=== PATIENT | female | born 1985 | race African-American/Black ===

== ENCOUNTER 2016-08-24 11:22 | Emergency (ER) | payer BC ==
[~2016-08-24] VITALS: Ht 170.2 cm; Wt 125.0 kg
[~2016-08-24 11:22] MED LIST: ALPR0.2582 PO
[2016-08-24] MEDS ORDERED: MORPHINE SULFATE 4 MG/ML CPJ (NOT FOR IM USE) IV STA (11:47)
[2016-08-24] MEDS ORDERED: ONDANSETRON HCL 4MG/2ML VIAL IV STA (11:47)
[2016-08-24] MEDS ORDERED: SODIUM CHLORIDE 0.9% 1,000 ML IV ONE (11:47)
[2016-08-24 12:23] LABS: BASOPHILS % 1.3 % (0.0-2.0); DIFFERENTIAL COMMENT 0; EOSINOPHILS % 3.4 % (0.0-5.0); HEMATOCRIT. 34.5 % (36.0-48.0); HEMOGLOBIN. 11.5 g/dL (12.0-16.0); LYMPHOCYTES % 42.4 % (20.0-50.0); MEAN CORPUSCULAR HEMOGLOBIN 24.9 pg (28.0-32.0); MEAN CORPUSCULAR HGB CONC 33.2 g/dL (31.0-37.0); MEAN CORPUSCULAR VOLUME 74.9 fL (81.0-99.0); MEAN PLATELET VOLUME 8.4 fl (7.4-10.4); MONOCYTES % 9.4 % (2.0-8.0); NEUTROPHILS % 43.5 % (40.0-76.0); PLATELET 277 x1000/uL (130-400); RED BLOOD CELL COUNT 4.61 mill/uL (4.2-5.4); RED CELL DISTRIBUTION WIDTH 15.4 % (11.6-14.6); WHITE BLOOD COUNT 4.5 x1000/uL (4.5-11.0)
[2016-08-24 12:27] LABS: CLARITY URINE TURBID (CLEAR); COLOR URINE YELLOW (YELLOW); GLUCOSE URINE NEGATIVE (NEGATIVE); KETONES URINE NEGATIVE (NEGATIVE); LEUKOCYTE ESTERASE URINE 2+ (NEGATIVE); NITRITE URINE NEGATIVE (NEGATIVE); OCCULT BLOOD URINE NEGATIVE (NEGATIVE); PH URINE 6.5 (4.5-8.0); PROTEIN URINE NEGATIVE (NEGATIVE); SPECIFIC GRAVITY URINE 1.015 (1.005-1.030)
[2016-08-24 12:29] LABS: INR 1.1; PROTHROMBIN TIME 11.7 sec
[2016-08-24 12:35] LABS: ALANINE AMINOTRANSFERASE 11 IU/L (13-61); ALBUMIN 3.5 g/dL (3.4-5.0); ANION GAP 12; CALCIUM 8.6 mg/dL (8.5-10.1); CARBON DIOXIDE 25 mEq/L (21-32); CHLORIDE 105 mEq/L (98-107); INDEX HEMOLYSI 1 (1-3); INDEX ICTERIC 1 (1-4); INDEX LIPEMIC 1 (1-3); LIPASE 68 IU/L (73-393); UREA NITROGEN BLOOD 10 mg/dL (7-21); eGFR > 60 mL/min (>60)
[2016-08-24 12:45] LABS: BACTERIA URINE 1+; WBC URINE 15-25 /hpf (0-2)
[2016-08-24 12:46] LABS: SQUAMOUS EPITHELIAL CELL URINE 3+ /lpf (RARE/1+)
[2016-08-24 12:48] LABS: RBC URINE 0-2 /hpf (0-2)
[2016-08-24 15:00] VITALS: BP 122/77
[2016-08-25 10:12] LABS: *AMPHETAMINES SCREEN URINE NEGATIVE (NEGATIVE); *BARBITURATES SCREEN URINE NEGATIVE (NEGATIVE); *BENZODIAZEPINES SCREEN URINE NEGATIVE (NEGATIVE); *COCAINE SCREEN URINE NEGATIVE (NEGATIVE); CANNABINOID URINE SCREEN NEGATIVE (NEGATIVE); ECSTASY MDMA SCREEN URINE NEGATIVE (NEGATIVE); METHADONE URINE SCREEN NEGATIVE (NEGATIVE); PHENCYCLIDINE URINE SCREEN NEGATIVE (NEGATIVE)
[2016-08-25 10:21] LABS: OPIATES URINE SCREEN PRESUMTIVE POSITIVE (NEGATIVE)
== END 2016-08-24 15:00 | disposition home or self-care (01) ==
LOC: ER 11:27
DX: N39.0 Urinary tract infection, site not specified (principal); D57.1 Sickle-cell disease without crisis; Z88.6 Allergy status to analgesic agent; Z79.899 Other long term (current) drug therapy
CPT/HCPCS: 36415; 80053; 80305; 81001; 81025; 83690; 85025; 85044; 85610; 96374; 96375; 99284; J2270; J2405; J7030; Z7610

== ENCOUNTER 2016-12-21 18:11 | Emergency (ER) | payer BC ==
[~2016-12-21] VITALS: Ht 170.2 cm; Wt 76.0 kg
[2016-12-21 18:14] VITALS: BP 149/96
== END 2016-12-21 22:54 | disposition left against medical advice (07) ==
LOC: ER 18:11
DX: R10.9 Unspecified abdominal pain (principal); Z53.21 Procedure and treatment not carried out due to patient leaving prior to being seen by health care provider

== ENCOUNTER 2017-08-09 09:43 | Emergency (ER) | payer BC ==
[~2017-08-09] VITALS: Ht 170.2 cm; Wt 78.0 kg
[~2017-08-09 09:43] MED LIST changes: +ALPR0.25 PO; -ALPR0.2582 PO
[2017-08-09 10:57] LABS: BASOPHILS % 1.1 % (0.0-2.0); EOSINOPHILS % 4.8 % (0.0-5.0); HEMATOCRIT. 35.2 % (36.0-48.0); HEMOGLOBIN. 11.6 g/dL (12.0-16.0); LYMPHOCYTES % 34.9 % (20.0-50.0); MEAN CORPUSCULAR HEMOGLOBIN 24.8 pg (28.0-32.0); MEAN CORPUSCULAR VOLUME 75.1 fL (81.0-99.0); MEAN PLATELET VOLUME 8.7 fl (7.4-10.4); MONOCYTES % 9.5 % (2.0-8.0); NEUTROPHILS % 49.7 % (40.0-76.0); PLATELET 304 x1000/uL (130-400); RED BLOOD CELL COUNT 4.69 mill/uL (4.2-5.4); RED CELL DISTRIBUTION WIDTH 15.4 % (11.6-14.6)
[2017-08-09 11:00] LABS: CHLORIDE 108 mEq/L (98-107)
[2017-08-09] MEDS ORDERED: SODIUM CHLORIDE 0.9% 1,000 ML IV ONE ×2 (11:00→13:32)
[2017-08-09] MEDS ORDERED: ACETAMINOPHEN 325MG TABLET PO STA (11:00)
[2017-08-09] MEDS ORDERED: ACETAMINOPHEN WITH CODEINE 300/30MG TABLET PO ONE (12:45)
[2017-08-09 14:32] LABS: CLARITY URINE TURBID (CLEAR); COLOR URINE YELLOW (YELLOW); KETONES URINE NEGATIVE (NEGATIVE); LEUKOCYTE ESTERASE URINE TRACE (NEGATIVE); NITRITE URINE NEGATIVE (NEGATIVE); OCCULT BLOOD URINE 3+ (NEGATIVE); PROTEIN URINE NEGATIVE (NEGATIVE); SPECIFIC GRAVITY URINE 1.013 (1.005-1.030)
[2017-08-09 14:58] VITALS: BP 104/61
== END 2017-08-09 15:08 | disposition home or self-care (01) ==
LOC: ER 10:25
DX: B34.9 Viral infection, unspecified (principal); R00.0 Tachycardia, unspecified; Z88.6 Allergy status to analgesic agent
CPT/HCPCS: 36415; 71045; 80053; 81003; 85025; 93005; 96360; 96361; 99285; J7030; Z7610

== ENCOUNTER 2017-12-11 23:51 | Emergency (ER) | payer BC ==
[~2017-12-11] VITALS: Ht 172.7 cm; Wt 73.0 kg
[2017-12-12 01:14] LABS: BASOPHILS % 0.6 % (0.0-2.0); EOSINOPHILS % 0.2 % (0.0-5.0); HEMATOCRIT. 34.5 % (36.0-48.0); HEMOGLOBIN. 11.4 g/dL (12.0-16.0); LYMPHOCYTES % 14.8 % (20.0-50.0); MEAN CORPUSCULAR HEMOGLOBIN 24.6 pg (28.0-32.0); MEAN CORPUSCULAR VOLUME 74.6 fL (81.0-99.0); MEAN PLATELET VOLUME 9.2 fl (7.4-10.4); MONOCYTES % 8.2 % (2.0-8.0); NEUTROPHILS % 76.2 % (40.0-76.0); PLATELET 295 x1000/uL (130-400); RED BLOOD CELL COUNT 4.63 mill/uL (4.2-5.4); RED CELL DISTRIBUTION WIDTH 15.8 % (11.6-14.6)
[2017-12-12 01:16] LABS: CHLORIDE 110 mEq/L (98-107)
[2017-12-12 01:20] LABS: ETHANOL BLOOD 222 mg/dL; HCG SCREEN NEGATIVE
[2017-12-12 03:43] VITALS: BP 131/85
== END 2017-12-12 03:56 | disposition home or self-care (01) ==
LOC: ER 23:51
DX: F10.129 Alcohol abuse with intoxication, unspecified (principal); F41.9 Anxiety disorder, unspecified; D57.1 Sickle-cell disease without crisis; Y90.7 Blood alcohol level of 200-239 mg/100 ml; Z88.6 Allergy status to analgesic agent; Z79.899 Other long term (current) drug therapy
CPT/HCPCS: 36415; 80053; 81025; 82962; 84703; 85025; 99284; G0482

== ENCOUNTER 2022-09-04 19:09 | Emergency (ER) | payer BC ==
[~2022-09-04] VITALS: Ht 170.2 cm; Wt 89.0 kg
[2022-09-04 19:35] VITALS: BP 136/82
[2022-09-04 20:45] LABS: BASOPHILS % 0.6 % (0.0-2.0); EOSINOPHILS % 1.5 % (0.0-5.0); HEMATOCRIT. 34.2 % (36.0-48.0); HEMOGLOBIN. 10.9 g/dL (12.0-16.0); LYMPHOCYTES % 35.2 % (20.0-50.0); MEAN CORPUSCULAR HEMOGLOBIN 23.9 pg (28.0-32.0); MEAN CORPUSCULAR VOLUME 74.8 fL (81.0-99.0); MEAN PLATELET VOLUME 9.2 fl (7.4-10.4); MONOCYTES % 7.2 % (2.0-8.0); NEUTROPHILS % 55.5 % (40.0-76.0); PLATELET 315 x1000/uL (130-400); RED BLOOD CELL COUNT 4.57 mill/uL (4.2-5.4); RED CELL DISTRIBUTION WIDTH 16.4 % (11.6-14.6)
[2022-09-04 20:53] LABS: CHLORIDE 105 mEq/L (98-107)
[2022-09-04 21:05] LABS: HCG SCREEN NEGATIVE
[2022-09-04 21:12] LABS: CLARITY URINE TURBID (CLEAR); COLOR URINE YELLOW (YELLOW); KETONES URINE NEGATIVE (NEGATIVE); LEUKOCYTE ESTERASE URINE 1+ (NEGATIVE); NITRITE URINE NEGATIVE (NEGATIVE); OCCULT BLOOD URINE NEGATIVE (NEGATIVE); PH URINE 6.5 (4.5-8.0); PROTEIN URINE NEGATIVE (NEGATIVE); SPECIFIC GRAVITY URINE 1.015 (1.005-1.030)
[2022-09-04] MEDS ORDERED: CEPH500C2 MT (21:59)
== END 2022-09-04 22:10 | disposition home or self-care (01) ==
LOC: ER 19:09
DX: R07.89 Other chest pain (principal); R51.9 Headache, unspecified; N39.0 Urinary tract infection, site not specified; D64.9 Anemia, unspecified; E11.9 Type 2 diabetes mellitus without complications
CPT/HCPCS: 36415; 71045; 80053; 81003; 81025; 84484; 84703; 85025; 85660; 93005; 99285

== ENCOUNTER 2023-05-10 08:08 | Emergency (ER) | payer OTHER ==
[~2023-05-10] VITALS: Ht 170.2 cm; Wt 91.0 kg
[~2023-05-10 08:08] MED LIST changes: +CEPH500C2 MT
[2023-05-10 08:12] VITALS: O2SAT 99
[2023-05-10 09:11] LABS: INR 1.1; PROTHROMBIN TIME 11.9 sec (9.6-11.0)
[2023-05-10 09:12] LABS: BASOPHILS % 0.7 % (0.0-2.0); DIFFERENTIAL COMMENT 0; EOSINOPHILS % 1.3 % (0.0-5.0); HEMATOCRIT. 33.4 % (36.0-48.0); HEMOGLOBIN. 10.4 g/dL (12.0-16.0); LYMPHOCYTES % 10.7 % (20.0-50.0); MEAN CORPUSCULAR HEMOGLOBIN 23.1 pg (28.0-32.0); MEAN CORPUSCULAR HGB CONC 31.3 g/dL (31.0-37.0); MEAN CORPUSCULAR VOLUME 73.9 fL (81.0-99.0); MEAN PLATELET VOLUME 8.7 fl (7.4-10.4); NEUTROPHILS % 79.3 % (40.0-76.0); PLATELET 349 x1000/uL (130-400); RED BLOOD CELL COUNT 4.51 mill/uL (4.2-5.4); WHITE BLOOD COUNT 6.4 x1000/uL (4.5-11.0)
[2023-05-10 09:14] LABS: ALANINE AMINOTRANSFERASE 9 IU/L (10-49); ALBUMIN 4.3 g/dL (3.2-4.8); ASPARTATE AMINOTRANSFERASE 16 IU/L (<34); BILIRUBIN TOTAL 0.2 mg/dL (0.1-1.0); CALCIUM 8.9 mg/dL (8.7-10.4); CARBON DIOXIDE 25 mEq/L (21-32); CHLORIDE 103 mEq/L (98-107); GLUCOSE 94 mg/dL (70-105); POTASSIUM 3.7 mEq/L (3.5-5.1); PROTEIN TOTAL 8.4 g/dL (6.0-8.3); SODIUM 137 mEq/L (136-145); UREA NITROGEN BLOOD 8 mg/dL (9-23)
[2023-05-10] MEDS ORDERED: ACETAMINOPHEN WITH CODEINE 300/30MG TABLET PO ONE (09:15)
[2023-05-10] MEDS ORDERED: AMOXICILLIN/POTASSIUM CLAVULANATE 875/125MG TAB PO ONE (09:15)
[2023-05-10 09:37] LABS: TROPONIN I HIGH SENSITIVITY < 4 ng/L (3.0-34)
[2023-05-10 11:08] VITALS: BP 112/71; PULSE 127; RESP 16; TEMP 100.7
[2023-05-10] MEDS ORDERED: ACET-2708 MT ×3 (11:37→11:40)
[2023-05-10] MEDS ORDERED: D-ME473S50 PO ×3 (11:37→11:40)
[2023-05-10] MEDS ORDERED: AMOX1TAB16 MT ×3 (11:37→11:40)
== END 2023-05-10 11:51 | disposition home or self-care (01) ==
LOC: ER 08:08
DX: J32.9 Chronic sinusitis, unspecified (principal); D64.9 Anemia, unspecified; E11.9 Type 2 diabetes mellitus without complications; Z79.899 Other long term (current) drug therapy
CPT/HCPCS: 36415; 71045; 80053; 84484; 85025; 93005; 99285

== ENCOUNTER 2023-10-13 08:07 | Inpatient (IN) | payer OTHER ==
[~2023-10-13] VITALS: Ht 170.2 cm; Wt 84.4 kg
[~2023-10-13 08:07] MED LIST changes: +ACET-2708 MT; +AMOX1TAB16 MT; +D-ME473S50 PO
[2023-10-13] MEDS ORDERED: KEPPRA (08:11)
[2023-10-13 08:51] LABS: DIFFERENTIAL COMMENT 0; HEMATOCRIT. 32.7 % (36.0-48.0); HEMOGLOBIN. 10.6 g/dL (12.0-16.0); MEAN CORPUSCULAR HEMOGLOBIN 23.4 pg (28.0-32.0); MEAN CORPUSCULAR HGB CONC 32.4 g/dL (31.0-37.0); MEAN CORPUSCULAR VOLUME 72.3 fL (81.0-99.0); MEAN PLATELET VOLUME 9.2 fl (7.4-10.4); PLATELET 341 x1000/uL (130-400); RED BLOOD CELL COUNT 4.53 mill/uL (4.2-5.4); RED CELL DISTRIBUTION WIDTH 17.3 % (11.6-14.6); WHITE BLOOD COUNT 6.5 x1000/uL (4.5-11.0)
[2023-10-13] MEDS: MORPHINE SULFATE 4 MG/ML INJ (FOR IV/IM USE) IV STA (08:57)
[2023-10-13 09:36] LABS: CHLORIDE 105 mEq/L (98-107); POTASSIUM 3.8 mEq/L (3.5-5.1); SODIUM 138 mEq/L (136-145)
[2023-10-13 09:37] LABS: CALCIUM 9.4 mg/dL (8.7-10.4); CARBON DIOXIDE 26 mEq/L (21-32)
[2023-10-13 09:42] LABS: CREATININE 0.9 mg/dL (0.6-1.0); GLUCOSE 99 mg/dL (70-105); UREA NITROGEN BLOOD 13 mg/dL (9-23)
[2023-10-13 09:55] LABS: TROPONIN I HIGH SENSITIVITY < 4 ng/L (3.0-34)
[2023-10-13 10:45] LABS: SICKLE CELL SCREEN POSITIVE (NEGATIVE)
[2023-10-13 11:13] LABS: TROPONIN I HIGH SENSITIVITY < 4 ng/L (3.0-34)
[2023-10-13] MEDS ORDERED: CLONIDINE 0.1MG TABLET PO PRN (12:15)
[2023-10-13] MEDS ORDERED: DOCUSATE SODIUM 100MG CAPSULE PO PRN (12:15)
[2023-10-13] MEDS ORDERED: MAGNESIUM/ALUMINUM HYDROXIDE/SIMETHICONE 30ML UDC PO PRN (12:15)
[2023-10-13] MEDS ORDERED: IPRATROPIUM/ALBUTEROL 0.5-3(2.5)MG/3ML NEB HHN PRN (12:15)
[2023-10-13] MEDS ORDERED: NA PHOS,M-B/NA PHOS,DI-BA ENEMA 118ML PR PRN (12:15)
[2023-10-13] MEDS ORDERED: ACETAMINOPHEN 325MG TABLET PO PRN ×2 (12:15)
[2023-10-13] MEDS ORDERED: GUAIFENESIN 200MG/10ML SUGAR FREE UDC PO PRN (12:15)
[2023-10-13] MEDS ORDERED: NALOXONE HCL 0.4MG/ML VIAL IV PRN (12:30)
[2023-10-13] MEDS: SODIUM CHLORIDE 0.9% 1,000 ML IV SCH (12:36)
[2023-10-13] MEDS: ENOXAPARIN 40MG/0.4ML SYR SUBCUT SCH (12:37)
[2023-10-13 13:41] LABS: ANISOCYTOSIS 1+; MICROCYTOSIS 2+; PLATELET ESTIMATE NORMAL
[2023-10-13 15:46] LABS: IRON 60 ug/dL (50-170)
[2023-10-13 15:48] LABS: CREATINE KINASE 79 IU/L (34-145); LACTATE DEHYDROGENASE 138 IU/L (120-246)
[2023-10-13 15:49] LABS: TOTAL IRON BINDING CAPACITY 343 ug/dl (250-425)
[2023-10-13 15:52] LABS: FERRITIN 23 ng/mL (10-291)
[2023-10-13 15:53] LABS: VITAMIN B12 SERUM 460 pg/mL (211-911)
[2023-10-13] MEDS: HYDROCODONE/ACETAMINOPHEN 5/325MG TABLET PO PRN (17:24)
[2023-10-13 17:36] VITALS: BP 112/71; PULSE 75; RESP 18; TEMP 98.8
[2023-10-13 17:54] VITALS: BP 112/71; PULSE 75; RESP 18; TEMP 98.8
[2023-10-13] MEDS ORDERED: NITROGLYCERIN 0.4MG TABLET SL SL PRN (18:45)
[2023-10-13 20:15] VITALS: BP 111/74; PULSE 99; RESP 15; TEMP 97.6
[2023-10-13] MEDS: LEVETIRACETAM 500MG/5ML CUP PO SCH (22:35)
[2023-10-13] MEDS: MELATONIN 3MG TABLET PO NR (22:37)
[2023-10-14 00:15] VITALS: BP 103/66; PULSE 75; RESP 16; TEMP 97.7
[2023-10-14 01:20] LABS: CREATINE KINASE 66 IU/L (34-145)
[2023-10-14 04:15] VITALS: BP 86/55; PULSE 76; RESP 13; TEMP 97.1
[2023-10-14 05:55] LABS: CHLORIDE 108 mEq/L (98-107); POTASSIUM 3.7 mEq/L (3.5-5.1); SODIUM 138 mEq/L (136-145)
[2023-10-14 05:56] LABS: CALCIUM 8.3 mg/dL (8.7-10.4); CARBON DIOXIDE 23 mEq/L (21-32)
[2023-10-14 06:01] LABS: CREATININE 0.8 mg/dL (0.6-1.0); GLUCOSE 98 mg/dL (70-105); UREA NITROGEN BLOOD 11 mg/dL (9-23)
[2023-10-14 06:05] LABS: T4 FREE 0.94 ng/dL (0.89-1.76)
[2023-10-14 06:16] LABS: BASOPHILS % 1.1 % (0.0-2.0); DIFFERENTIAL COMMENT 0; EOSINOPHILS % 2.5 % (0.0-5.0); LYMPHOCYTES % 44.1 % (20.0-50.0); MEAN CORPUSCULAR HEMOGLOBIN 23.6 pg (28.0-32.0); MEAN CORPUSCULAR HGB CONC 32.1 g/dL (31.0-37.0); MEAN CORPUSCULAR VOLUME 73.5 fL (81.0-99.0); MEAN PLATELET VOLUME 9.2 fl (7.4-10.4); MONOCYTES % 8.2 % (2.0-8.0); NEUTROPHILS % 44.1 % (40.0-76.0); PLATELET 313 x1000/uL (130-400); RED BLOOD CELL COUNT 3.81 mill/uL (4.2-5.4); RED CELL DISTRIBUTION WIDTH 17.2 % (11.6-14.6); WHITE BLOOD COUNT 6.7 x1000/uL (4.5-11.0)
[2023-10-14 08:00] VITALS: BP 103/71; PULSE 78; RESP 18; TEMP 98
[2023-10-14 09:33] LABS: BG BASE EXCESS 0.2 mmol/L (-2.0-2.0); BG CARBOXYHEMOGLOBIN 0.3 % (0.5-1.5); BG DEOXYHEMOGLOBIN 2.6 % (0.0-5.0); BG FRACTION INSPIRED OXYGEN 21; BG HCO3 ACT 24.6 mmol/L (22.0-26.0); BG METHEMOGLOBIN 0.3 % (0.0-1.5); BG OXYGEN SATURATION 97.4 % (92.0-98.5); BG OXYHEMOGLOBIN 96.8 % (94.0-97.0); BG PCO2 39.2 mmHg (35.0-45.0); BG PH 7.416 (7.350-7.450); BG PO2 99.7 mmHg (75.0-100.0); BG SAMPLE SITE LEFT RADIAL; BG TOTAL HEMOGLOBIN 11.3 g/dL (12.0-18.0); BG VENT MODE ROOM AIR
[2023-10-14 11:44] LABS: HEMATOCRIT 30.6 % (36.0-48.0)
[2023-10-14 11:50] LABS: CLARITY URINE CLOUDY (CLEAR); COLOR URINE ORANGE (YELLOW); GLUCOSE URINE NEGATIVE (NEGATIVE); KETONES URINE NEGATIVE (NEGATIVE); LEUKOCYTE ESTERASE URINE NEGATIVE (NEGATIVE); NITRITE URINE NEGATIVE (NEGATIVE); OCCULT BLOOD URINE NEGATIVE (NEGATIVE); PH URINE 6.5 (4.5-8.0); PROTEIN URINE NEGATIVE (NEGATIVE); UCG QC LOT# 798852; UCG SCREEN NEGATIVE
[2023-10-14 12:00] VITALS: BP 99/70; PULSE 72; RESP 18; TEMP 97.9
[2023-10-14 12:02] LABS: *AMPHETAMINES SCREEN URINE NEGATIVE (NEGATIVE)
[2023-10-14 12:03] LABS: *BARBITURATES SCREEN URINE NEGATIVE (NEGATIVE); *BENZODIAZEPINES SCREEN URINE NEGATIVE (NEGATIVE); *COCAINE SCREEN URINE NEGATIVE (NEGATIVE); CANNABINOID URINE SCREEN NEGATIVE (NEGATIVE); ECSTASY MDMA SCREEN URINE NEGATIVE (NEGATIVE); METHADONE URINE SCREEN NEGATIVE (NEGATIVE); OPIATES URINE SCREEN PRESUMPTIVE POSITIVE (NEGATIVE); PHENCYCLIDINE URINE SCREEN NEGATIVE (NEGATIVE)
[2023-10-14 12:17] LABS: BACTERIA URINE FEW; RBC URINE 0-2 /hpf (0-2); SQUAMOUS EPITHELIAL CELL URINE 1+ /lpf (RARE/1+); WBC URINE 0-2 /hpf (0-2); YEAST URINE NONE SEEN
[2023-10-14 16:00] VITALS: BP 101/67; PULSE 77; RESP 18; TEMP 98
[2023-10-14] MEDS: ONDANSETRON HCL 4MG/2ML INJ IV PRN (17:00)
[2023-10-14] MEDS: SUMATRIPTAN SUCCINATE 25MG TABLET PO PRN (17:08)
[2023-10-14 20:05] VITALS: BP 111/79; PULSE 77; RESP 19; TEMP 97.5
[2023-10-14] MEDS: ATORVASTATIN CALCIUM 20MG TABLET PO SCH (21:59)
[2023-10-15 00:05] VITALS: BP 94/65; PULSE 74; RESP 18; TEMP 97.3
[2023-10-15 04:00] VITALS: BP_SYST 112; BP_SYST 161; BP_DIAS 42; BP_DIAS 72; PULSE 65; PULSE 76; RESP 16; RESP 18; TEMP 97.1; TEMP 97.2
[2023-10-15 07:26] LABS: HEMATOCRIT 30.3 % (36.0-48.0); HEMOGLOBIN 9.7 g/dL (12.0-16.0); MEAN CORPUSCULAR HEMOGLOBIN 23.2 pg (28.0-32.0); MEAN CORPUSCULAR HGB CONC 31.9 g/dL (31.0-37.0); MEAN CORPUSCULAR VOLUME 72.6 fL (81.0-99.0); PLATELET 296 x1000/uL (130-400); RED BLOOD CELL COUNT 4.17 mill/uL (4.2-5.4); RED CELL DISTRIBUTION WIDTH 17.4 % (11.6-14.6); WHITE BLOOD COUNT 6.3 x1000/uL (4.5-11.0)
[2023-10-15 07:28] LABS: CALCIUM 8.6 mg/dL (8.7-10.4); CHLORIDE 108 mEq/L (98-107); SODIUM 137 mEq/L (136-145)
[2023-10-15 07:29] LABS: CARBON DIOXIDE 25 mEq/L (21-32)
[2023-10-15 07:34] LABS: CREATININE 0.8 mg/dL (0.6-1.0); GLUCOSE 92 mg/dL (70-105); UREA NITROGEN BLOOD 12 mg/dL (9-23)
[2023-10-15 07:36] LABS: PHOSPHORUS 3.5 mg/dL (2.5-4.9)
[2023-10-15 08:00] VITALS: BP 96/52; PULSE 85; RESP 18; TEMP 98.1
[2023-10-15] MEDS ORDERED: REGADENOSON 0.4 MG/5 ML IV ONE ×2 (11:00→13:59)
[2023-10-15] MEDS: MAGNESIUM 4 G PREMIX 100 ML IV SCH (11:55)
[2023-10-15 12:00] VITALS: BP 107/54; PULSE 81; RESP 17; TEMP 98
[2023-10-15] MEDS ORDERED: HYDRALAZINE 20MG/ML VIAL IV NR (14:45)
[2023-10-15 16:00] VITALS: BP 105/55; PULSE 100; RESP 20; TEMP 98.4
[2023-10-15] MEDS: KETOROLAC 30MG/ML VIAL IV NR (17:16)
[2023-10-15] MEDS: METOCLOPRAMIDE HCL 10MG/2ML VIAL IV NR (17:16)
[2023-10-15 20:00] VITALS: BP 103/59; PULSE 89; RESP 18; TEMP 98
[2023-10-16] VITALS: BP 90/46; PULSE 75; RESP 17; TEMP 98.2
[2023-10-16 04:00] VITALS: BP 93/56; PULSE 79; RESP 19; TEMP 97.8
[2023-10-16 06:08] LABS: HEMATOCRIT 28.3 % (36.0-48.0); MEAN CORPUSCULAR HEMOGLOBIN 23.4 pg (28.0-32.0); MEAN CORPUSCULAR HGB CONC 31.8 g/dL (31.0-37.0); MEAN CORPUSCULAR VOLUME 73.4 fL (81.0-99.0); PLATELET 288 x1000/uL (130-400); RED BLOOD CELL COUNT 3.86 mill/uL (4.2-5.4); WHITE BLOOD COUNT 6.6 x1000/uL (4.5-11.0)
[2023-10-16 06:19] LABS: CALCIUM 6.7 mg/dL (8.7-10.4); CARBON DIOXIDE 20 mEq/L (21-32); CHLORIDE 116 mEq/L (98-107); POTASSIUM 3.3 mEq/L (3.5-5.1); SODIUM 142 mEq/L (136-145)
[2023-10-16 06:23] LABS: CREATININE 0.7 mg/dL (0.6-1.0)
[2023-10-16 06:25] LABS: GLUCOSE 76 mg/dL (70-105); UREA NITROGEN BLOOD 10 mg/dL (9-23)
[2023-10-16 06:27] LABS: PHOSPHORUS 2.7 mg/dL (2.5-4.9)
[2023-10-16] MEDS: POTASSIUM CHLORIDE 20MEQ TABLET SR PO SCH (07:07)
[2023-10-16 08:00] VITALS: BP 92/59; PULSE 90; RESP 20; TEMP 98
[2023-10-16] MEDS ORDERED: ATOR20TA PO (11:52)
[2023-10-16] MEDS ORDERED: NITR0.4T49 SL (11:52)
[2023-10-16] MEDS ORDERED: KEPPSOL PO (11:52)
[2023-10-16] MEDS ORDERED: IMIT25 PO (11:52)
[2023-10-16] MEDS ORDERED: ASPI-1497 PO (11:57)
[2023-10-16 12:00] VITALS: BP 96/54; PULSE 86; RESP 20; TEMP 98.2
[2023-10-16 13:00] VITALS: BP 96/54; PULSE 86; TEMP 98.2; O2SAT 99
== END 2023-10-16 14:00 | disposition home or self-care (01) | DRG 203 ==
LOC: ER 08:07 → 5WST 10:11 → EDBEDREQ 10:14 → EDBEDREQTM 10:14 → 3WST 17:19
PROVIDERS: ADMIT Preventive Medicine Clinical Informatics; ATTEND Preventive Medicine Clinical Informatics
DX: R07.89 Other chest pain (principal); D56.0 Alpha thalassemia; D57.1 Sickle-cell disease without crisis; F41.1 Generalized anxiety disorder; F41.0 Panic disorder [episodic paroxysmal anxiety]; I10 Essential (primary) hypertension; E11.9 Type 2 diabetes mellitus without complications; G43.909 Migraine, unspecified, not intractable, without status migrainosus; Z90.49 Acquired absence of other specified parts of digestive tract; Z88.6 Allergy status to analgesic agent; Z88.1 Allergy status to other antibiotic agents
CPT/HCPCS: 36415; 36600; 71045; 78452; 80048; 80061; 80305; 81003; 81025; 82375; 82550; 82607; 82728; 82746; 82805; 83036; 83540; 83550; 83605; 83615; 83735; 83880; 84100; 84439; 84443; 84484; 85014; 85018; 85025; 85027; 85044; 85379; 85651; 85660; 93005; 93306; 99285; A9500; J0360; J1650; J1885; J2270; J2405; J2765; J2785; J3475; J7030

== ENCOUNTER 2024-02-01 20:21 | Emergency (ER) | payer OTHER ==
[~2024-02-01] VITALS: Ht 170.2 cm; Wt 82.0 kg
[~2024-02-01 20:21] MED LIST changes: -AMOX1TAB16 MT; +ASPI-1497 PO; +ATOR20TA PO; -CEPH500C2 MT; -D-ME473S50 PO; +IMIT25 PO; +KEPPSOL PO; +NITR0.4T49 SL
[2024-02-01 20:24] VITALS: O2SAT 100
[2024-02-01 20:25] VITALS: BP 125/87; PULSE 86; RESP 18; TEMP 98; O2SAT 98
[2024-02-01 21:07] LABS: DIFFERENTIAL COMMENT 0; EOSINOPHILS % 2.1 % (0.0-5.0); HEMATOCRIT. 31.8 % (36.0-48.0); HEMOGLOBIN. 10.4 g/dL (12.0-16.0); LYMPHOCYTES % 31.2 % (20.0-50.0); MEAN CORPUSCULAR HEMOGLOBIN 23.5 pg (28.0-32.0); MEAN CORPUSCULAR HGB CONC 32.6 g/dL (31.0-37.0); MEAN PLATELET VOLUME 8.4 fl (7.4-10.4); MONOCYTES % 6.6 % (2.0-8.0); NEUTROPHILS % 59.1 % (40.0-76.0); PLATELET 364 x1000/uL (130-400); RED BLOOD CELL COUNT 4.42 mill/uL (4.2-5.4); RED CELL DISTRIBUTION WIDTH 18.8 % (11.6-14.6); WHITE BLOOD COUNT 7.2 x1000/uL (4.5-11.0)
[2024-02-01 21:14] LABS: CHLORIDE 105 mEq/L (98-107); POTASSIUM 3.9 mEq/L (3.5-5.1); SODIUM 137 mEq/L (136-145)
[2024-02-01 21:15] LABS: CARBON DIOXIDE 27 mEq/L (21-32)
[2024-02-01 21:16] LABS: CALCIUM 9.3 mg/dL (8.7-10.4)
[2024-02-01 21:20] LABS: CREATININE 0.9 mg/dL (0.6-1.0); GLUCOSE 95 mg/dL (70-105); UREA NITROGEN BLOOD 14 mg/dL (9-23)
[2024-02-01 21:23] LABS: TROPONIN I HIGH SENSITIVITY < 4 ng/L (3.0-34)
[2024-02-01] MEDS ORDERED: DICLOFENAC SODIUM 75MG DR TABLET PO ONE (22:30)
[2024-02-01] MEDS ORDERED: ACETAMINOPHEN 325MG TABLET PO ONE (22:30)
== END 2024-02-02 01:01 | disposition left against medical advice (07) ==
LOC: ER 20:21
DX: R07.89 Other chest pain (principal); D64.9 Anemia, unspecified; G43.909 Migraine, unspecified, not intractable, without status migrainosus; E11.9 Type 2 diabetes mellitus without complications; Z98.890 Other specified postprocedural states; Z90.49 Acquired absence of other specified parts of digestive tract; Z88.6 Allergy status to analgesic agent; Z88.1 Allergy status to other antibiotic agents; Z79.899 Other long term (current) drug therapy; Z79.82 Long term (current) use of aspirin
CPT/HCPCS: 36415; 71045; 80048; 84484; 85025; 93005; 99285

== ENCOUNTER 2024-09-09 20:18 | Emergency (ER) | payer OTHER ==
[~2024-09-09] VITALS: Ht 170.2 cm; Wt 92.0 kg
[2024-09-09 20:23] VITALS: O2SAT 100
[2024-09-09 20:27] VITALS: BP 122/75; PULSE 82; RESP 18; TEMP 36.5; O2SAT 99
[2024-09-09] MEDS ORDERED: ACET-2708 MT (21:20)
== END 2024-09-09 22:28 | disposition home or self-care (01) ==
LOC: ER 20:18
DX: S52.56 Barton's fracture (principal); D64.9 Anemia, unspecified; J45.909 Unspecified asthma, uncomplicated; G43.909 Migraine, unspecified, not intractable, without status migrainosus; Z90.49 Acquired absence of other specified parts of digestive tract; Z79.899 Other long term (current) drug therapy; Z88.1 Allergy status to other antibiotic agents; Z88.6 Allergy status to analgesic agent; W22.01XA Walked into wall, initial encounter; Y93.89 Activity, other specified; Y92.89 Other specified places as the place of occurrence of the external cause; Y99.8 Other external cause status
CPT/HCPCS: 99284; 73090; 73110; 73130; 29125; A6449

== ENCOUNTER 2024-12-19 09:12 | Emergency (ER) | payer OTHER ==
[~2024-12-19] VITALS: Ht 167.6 cm; Wt 85.0 kg
[2024-12-19 09:16] VITALS: O2SAT 100
[2024-12-19 09:32] LABS: BASOPHILS % 1.4 % (0.0-2.0); EOSINOPHILS % 5.9 % (0.0-5.0); HEMATOCRIT. 32.9 % (36.0-48.0); HEMOGLOBIN. 10.5 g/dL (12.0-16.0); LYMPHOCYTES % 36.8 % (20.0-50.0); MEAN PLATELET VOLUME 8.9 fl (7.4-10.4); MONOCYTES % 9.4 % (2.0-8.0); NEUTROPHILS % 46.5 % (40.0-76.0); PLATELET 328 x1000/uL (130-400); RED BLOOD CELL COUNT 4.51 mill/uL (4.2-5.4); RED CELL DISTRIBUTION WIDTH 18.8 % (11.6-14.6)
[2024-12-19 09:43] LABS: INR 1.0
[2024-12-19 09:45] LABS: CREATININE 0.9 mg/dL (0.6-1.0); UREA NITROGEN BLOOD 11 mg/dL (9-23)
[2024-12-19 09:46] LABS: TROPONIN I HIGH SENSITIVITY < 4 ng/L (3.0-34)
[2024-12-19 09:47] LABS: ASPARTATE AMINOTRANSFERASE 17 IU/L (<34); BILIRUBIN DIRECT < 0.1 mg/dL (<=3.0)
[2024-12-19 09:48] LABS: BILIRUBIN TOTAL 0.2 mg/dL (0.1-1.0); PROTEIN TOTAL 7.8 g/dL (6.0-8.3)
[2024-12-19 09:58] LABS: HCG SCREEN NEGATIVE
[2024-12-19] MEDS: ONDANSETRON HCL 4MG/2ML INJ IV ONE (10:00)
[2024-12-19] MEDS: MORPHINE SULFATE 4 MG/ML INJ (FOR IV/IM USE) IV ONE (10:01)
[2024-12-19] MEDS: SODIUM CHLORIDE 0.9% 1,000 ML IV ONE (10:04)
[2024-12-19 11:12] VITALS: BP 126/79; PULSE 87; RESP 18; TEMP 36.9; O2SAT 100
== END 2024-12-19 11:14 | disposition home or self-care (01) ==
LOC: ER 09:12
DX: R07.9 Chest pain, unspecified (principal); D57.1 Sickle-cell disease without crisis; B34.9 Viral infection, unspecified; D64.9 Anemia, unspecified; J45.909 Unspecified asthma, uncomplicated; G43.909 Migraine, unspecified, not intractable, without status migrainosus; Z90.49 Acquired absence of other specified parts of digestive tract; Z79.899 Other long term (current) drug therapy; Z88.1 Allergy status to other antibiotic agents; Z88.6 Allergy status to analgesic agent
CPT/HCPCS: 80076; 80048; 84703; 85025; 85044; 85610; 85730; 84484; 36415; 71045; 93005; 96361; 96374; 96375; 99285; J2405; J2270; J7030; Z7610 ×2; A4606

== ENCOUNTER 2025-01-10 11:18 | Inpatient (IN) | payer OTHER ==
[~2025-01-10] VITALS: Ht 170.2 cm; Wt 96.6 kg
[2025-01-10 11:28] VITALS: O2SAT 99
[2025-01-10] MEDS: MORPHINE SULFATE 4 MG/ML INJ (FOR IV/IM USE) IV ONE (13:48)
[2025-01-10] MEDS ORDERED: METOCLOPRAMIDE HCL 10MG/2ML VIAL IV ONE (14:15)
[2025-01-10] MEDS ORDERED: KETOROLAC 30MG/ML VIAL IV ONE (14:15)
[2025-01-10] MEDS: SODIUM CHLORIDE 0.9% (SEPSIS BOLUS) IV ONE (14:15)
[2025-01-10] MEDS ORDERED: ACYCLOVIR IV ONE (14:30)
[2025-01-10] MEDS ORDERED: DEXAMETHASONE 10 MG/ML VIAL IV ONE (14:30)
[2025-01-10] MEDS ORDERED: WATER IV ONE (14:30)
[2025-01-10] MEDS ORDERED: ACETAMINOPHEN 325MG TABLET PO ONE (14:30)
[2025-01-10] MEDS ORDERED: DEXT 5% IV ONE (14:30)
[2025-01-10 15:44] LABS: BASOPHILS % 0.8 % (0.0-2.0); EOSINOPHILS % 2.2 % (0.0-5.0); HEMATOCRIT. 32.4 % (36.0-48.0); HEMOGLOBIN. 10.1 g/dL (12.0-16.0); LYMPHOCYTES % 35.4 % (20.0-50.0); MEAN PLATELET VOLUME 9.0 fl (7.4-10.4); MONOCYTES % 5.8 % (2.0-8.0); NEUTROPHILS % 55.8 % (40.0-76.0); PLATELET 332 x1000/uL (130-400); RED BLOOD CELL COUNT 4.45 mill/uL (4.2-5.4); RED CELL DISTRIBUTION WIDTH 19.5 % (11.6-14.6)
[2025-01-10 15:52] LABS: INR 1.0
[2025-01-10 15:58] LABS: CREATININE 0.9 mg/dL (0.6-1.0)
[2025-01-10 15:59] LABS: UREA NITROGEN BLOOD 8 mg/dL (9-23)
[2025-01-10 16:00] LABS: ASPARTATE AMINOTRANSFERASE 15 IU/L (<34)
[2025-01-10 16:01] LABS: BILIRUBIN DIRECT < 0.1 mg/dL (<=3.0); BILIRUBIN TOTAL 0.3 mg/dL (0.1-1.0); PROTEIN TOTAL 7.2 g/dL (6.0-8.3)
[2025-01-10 16:09] LABS: C REACTIVE PROTEIN HIGH SENS 25.30 mg/l (<1.00)
[2025-01-10] MEDS: METOCLOPRAMIDE HCL 10MG/2ML VIAL IV SCH (16:37)
[2025-01-10] MEDS: DEXAMETHASONE 10 MG/ML VIAL IV SCH (16:37)
[2025-01-10] MEDS: CEFTRIAXONE 2GM/50ML 50 ML IV ONE (16:37)
[2025-01-10] MEDS: ACETAMINOPHEN 325MG TABLET PO SCH (16:38)
[2025-01-10] MEDS: DEXT 5% IV SCH (17:55)
[2025-01-10] MEDS: ACYCLOVIR IV SCH (17:55)
[2025-01-10] MEDS: WATER IV SCH (17:55)
[2025-01-10 19:20] VITALS: BP 107/67; PULSE 73; RESP 18; TEMP 36.1956
[2025-01-10 20:00] VITALS: BP 122/68; PULSE 72; RESP 19; TEMP 36.2; O2SAT 98
[2025-01-10] MEDS ORDERED: MAGNESIUM/ALUMINUM HYDROXIDE/SIMETHICONE 30ML UDC PO PRN (21:00)
[2025-01-10] MEDS ORDERED: IPRATROPIUM/ALBUTEROL 0.5-3(2.5)MG/3ML NEB HHN PRN (21:00)
[2025-01-10] MEDS ORDERED: ONDANSETRON HCL 4MG/2ML INJ IV PRN (21:00)
[2025-01-10] MEDS ORDERED: CLONIDINE 0.1MG TABLET PO PRN (21:00)
[2025-01-10] MEDS ORDERED: DEXTROSE 50% WATER 50ML SYRINGE IV PRN (21:00)
[2025-01-10] MEDS ORDERED: DOCUSATE SODIUM 100MG CAPSULE PO PRN (21:00)
[2025-01-10] MEDS ORDERED: GUAIFENESIN 200MG/10ML SUGAR FREE UDC PO PRN (21:00)
[2025-01-10] MEDS ORDERED: ACETAMINOPHEN 325MG TABLET PO PRN (21:00)
[2025-01-10] MEDS: PANTOPRAZOLE SODIUM 40 MG/VIAL IV SCH (21:52)
[2025-01-10] MEDS: SODIUM CHLORIDE 0.9% 1,000 ML IV SCH (21:55)
[2025-01-10] MEDS: DOXYCYCLINE 100MG/100ML 100 ML IV SCH (23:52)
[2025-01-11] VITALS: BP 103/67; PULSE 82; RESP 18; TEMP 36.2; O2SAT 98
[2025-01-11] MEDS: DEXAMETHASONE 10 MG/ML VIAL IV SCH (00:09)
[2025-01-11 01:25] LABS: TROPONIN I HIGH SENSITIVITY < 4 ng/L (3.0-34)
[2025-01-11] MEDS: LINEZOLID 600 MG IV SCH (01:53)
[2025-01-11] MEDS ORDERED: MORPHINE SULFATE 4 MG/ML INJ (FOR IV/IM USE) IV PRN (02:15)
[2025-01-11] MEDS ORDERED: NALOXONE HCL 0.4MG/ML VIAL IV PRN (03:00)
[2025-01-11 04:00] VITALS: BP 116/70; PULSE 68; RESP 19; TEMP 36.4; O2SAT 100
[2025-01-11] MEDS: BACLOFEN 10MG TABLET PO SCH (05:41)
[2025-01-11 08:00] VITALS: BP 100/62; PULSE 74; RESP 20; TEMP 36.6; O2SAT 100
[2025-01-11] MEDS: LEVETIRACETAM 500MG/5ML CUP PO SCH (08:19)
[2025-01-11] MEDS: CEFTRIAXONE 2GM/50ML 50 ML IV SCH (08:20)
[2025-01-11] MEDS: SUMATRIPTAN SUCCINATE 25MG TABLET PO PRN (09:17)
[2025-01-11 10:43] LABS: HEMATOCRIT. 31.3 % (36.0-48.0); HEMOGLOBIN. 10.0 g/dL (12.0-16.0); MEAN PLATELET VOLUME 9.4 fl (7.4-10.4); PLATELET 356 x1000/uL (130-400); RED BLOOD CELL COUNT 4.39 mill/uL (4.2-5.4); RED CELL DISTRIBUTION WIDTH 18.8 % (11.6-14.6)
[2025-01-11 11:01] LABS: CREATININE 0.8 mg/dL (0.6-1.0); TRIGLYCERIDE 35 mg/dL (0-150); TROPONIN I HIGH SENSITIVITY < 4 ng/L (3.0-34); UREA NITROGEN BLOOD 9 mg/dL (9-23)
[2025-01-11 11:02] LABS: LDL CHOLESTEROL 150 mg/dL (5-100)
[2025-01-11 11:04] LABS: T4 FREE 1.13 ng/dL (0.89-1.76)
[2025-01-11 12:00] VITALS: BP 100/59; PULSE 68; RESP 20; TEMP 37; O2SAT 100
[2025-01-11] MEDS ORDERED: IBUP-1455 PO (12:48)
[2025-01-11] MEDS ORDERED: FAMO20TA8 MT (12:48)
[2025-01-11] MEDS ORDERED: ACET-2708 MT (13:27)
[2025-01-11 13:34] LABS: BAND% 7.0 % (1.0-6.0); LYMPHOCYTES % MANUAL 6.0 % (20.0-60.0); MONOCYTES % MANUAL 1.0 % (2.0-8.0); NEUTROPHILS % MANUAL 86.0 % (45.0-75.0)
[2025-01-11 13:35] LABS: PLATELET ESTIMATE NORMAL
[2025-01-11 15:45] VITALS: BP 117/62; PULSE 61; TEMP 97.6
[2025-01-11 16:00] VITALS: BP 117/62; PULSE 61; RESP 20; TEMP 36.4; O2SAT 100
[2025-01-11] MEDS ORDERED: CEFTRIAXONE 2GM/50ML 50 ML IV SCH (18:00)
[2025-01-11] MEDS ORDERED: ATORVASTATIN CALCIUM 20MG TABLET PO SCH (21:00)
== END 2025-01-11 18:17 | disposition home or self-care (01) | DRG 103 ==
LOC: ER 11:18 → 8WST 16:43 → EDBEDREQTM 17:12 → EDBEDREQ 17:12 → ENRESERV 18:29
PROVIDERS: ADMIT Internal Medicine; ATTEND Internal Medicine
DX: G43.909 Migraine, unspecified, not intractable, without status migrainosus (principal); E66.9 Obesity, unspecified; E78.5 Hyperlipidemia, unspecified; F32.A Depression, unspecified; F41.9 Anxiety disorder, unspecified; G40.909 Epilepsy, unspecified, not intractable, without status epilepticus; J45.909 Unspecified asthma, uncomplicated; D72.829 Elevated white blood cell count, unspecified; R25.2 Cramp and spasm; Z79.82 Long term (current) use of aspirin; Z79.899 Other long term (current) drug therapy; Z86.61 Personal history of infections of the central nervous system; Z88.1 Allergy status to other antibiotic agents; Z88.6 Allergy status to analgesic agent; Z90.49 Acquired absence of other specified parts of digestive tract; Z82.3 Family history of stroke; Z82.49 Family history of ischemic heart disease and other diseases of the circulatory system
CPT/HCPCS: 36415; 71045; 80048; 80061; 80076; 82550; 83605; 84145; 84439; 84443; 84484; 85025; 86141; 96365; 96375; 99285; A4606; J0133; J0696; J1100; J2020; J2270; J2470; J2765; J3490; J7030; J7060